=== PATIENT | female | born 1970 | race Caucasian/White ===

== ENCOUNTER 2017-09-03 16:01 | Inpatient (IN) | payer OTHER ==
[~2017-09-03] VITALS: Ht 157.5 cm; Wt 80.7 kg
[~2017-09-03 16:01] MED LIST: ALLERGY10 M2 PO; CYCLOBENZAPRINE10 M1 PO; FLONASE ALLERG9.9 ML NASB; FLOVENT DISKU100 MCG INH; GUAIFENESIN-COD10 ML PO; IBUPROFEN600 M1 PO; IBUPROFEN800 M1 PO; LIDODERM1 EACH TOP; MASON NATURAL2000 IU PO; MUCINEX600 M1 PO; NASONEX17 GM NASB; PROAIR HFA8.5 GM INH; TYLENOL325 M1 PO; ZITHROMAX250 M2 PO
[2017-09-03 18:50] LABS: ABSOLUTE BASOPHIL COUNT 0 /CUMM (0.0-0.2); ABSOLUTE EOSINOPHIL COUNT 0.1 /CUMM (0.0-0.7); ABSOLUTE GRANULOCYTE CT 18.6 /CUMM (1.4-6.5); ABSOLUTE LYMPH COUNT 1.9 /CUMM (1.2-3.4); ABSOLUTE MONOCYTE COUNT 1.9 /CUMM (0.10-0.60); BASOPHIL % 0.1 % (0.0-2.0); EOSINOPHIL % 0.2 % (0-5); HEMATOCRIT 39.5 % (37-47); MEAN CORPUSCULAR HGB 26.1 PG (27.0-31.0); MEAN CORPUSCULAR HGB CONC 32.9 G/DL (33.0-37.0); MEAN CORPUSCULAR VOLUME 79.5 FL (81.0-99.0); MEAN PLATELET VOLUME 7.6 FL (7.4-10.4); PLATELET COUNT 450 /CUMM (130-400); RBC DISTRIBUTION WIDTH 15.3 % (11.5-14.5); RED BLOOD CELL CT 4.97 /CUMM (4.20-5.40); WHITE BLOOD CELL COUNT 22.6 /CUMM (4.8-10.8)
[2017-09-03 19:20] LABS: GRANULOCYTE % 82.5 % (42.2-75.2)
--- NOTE | 2017-09-03 19:35 | ED GI/GU/ABDOMINAL COMPLAINT ---
History of Present Illness General Chief Complaint: Abdominal Pain/Flank Pain Stated Complaint: ABD PAIN Source: patient Exam Limitations: no limitations Vital Signs & Intake/Output Vital Signs & Intake/Output Vital Signs Date Time Temp Pulse Resp B/P B/P Pulse O2 O2 Flow FiO2 Mean Ox Delivery Rate 09/04 0200 Nasal 1.0L Cannula 09/03 2100 98.6 102 18 139/73 96 Room Air 09/03 1845 Room Air Room Air 09/03 1817 97.9 96 20 157/89 98 Room Air 09/03 1613 98.1 89 18 137/88 98 Room Air ED Intake and Output 09/04 0000 09/03 1200 Intake Total Output Total Balance Patient 178 lb Weight Weight Reported by Patient Measurement Method Allergies Coded Allergies: mometasone furoate (From NASONEX) (Intermediate, NASAL SWELLING 02/20/16) montelukast (From SINGULAIR) (PER PT MADE HER FEEL JITTERY, UNCOMFORTABLE ) pseudoephedrine (From SUDAFED) (MADE HEART FEEL FLUTTERS 09/03/17) Reconcile Medications Acetaminophen (Tylenol) 325 MG TABLET 500 MG PO TID PRN pain Azelastine HCl (Unknown Strength) SPRAY.PUMP (Unknown Dose) UNKNOWN (Reported ) Cetirizine HCl (Allergy) 10 MG TABLET 1 TAB PO DAILY ALLERGIES Cyclobenzaprine HCl 10 MG TABLET 1 TAB PO QPM PRN muscle spasm May cause drowsiness. Avoid prior to driving. Fluticasone Propionate (Flonase Allergy Relief) 50 MCG/ACTUATION SPRAY.SUSP 1 SPRAY NASB DAILY ALLERGIES Ibuprofen 600 MG TABLET 1 TAB PO TID pain with food Lidocaine (Lidoderm) 5 % ADH..PATCH 1 PAT TOP DAILY PRN pain may wear up to 12 hours Multiple Vitamin (Multivitamins) 1 EACH TABLET 1 TAB PO DAILY SUPPLEMENT ( Reported) Triage Note: 47F [place]UR[place] AFTER DX URI BUT STILL HAS ABDOMINAL PAIN SINCE THIS MORNING. CONSTANT AND CRAMPY/SHARP THAT RADIATES DOWN PELVIS. DENIES DYSURIA, THINKS SHE MAY HAVE HAD HEMATURIA THE OTHER NIGHT. BACK PAIN TO MID BACK SINCE WEDNESDAY. AFEBRILE. LAST BM TODAY AND SOFT/BROWN. Triage Nurses Notes Reviewed? yes LMP (ages 10-50): unknown ? n Is pt currently ? No Onset: Abrupt Duration: day(s): (1), constant, continues in ED Timing: single episode today Quality/Severity: sharpness Severity Numbers: 8 Location: right lower quadrant Radiation: no radiation Activities at Onset: none Prior Abdominal Problems: none Past Sexual History: Unobtainable at this time No Modifying Factors: none Modifying Factors: Worsens With: movement, palpation. Associated Symptoms: abdominal pain, nausea/vomiting HPI: 47-year-old female without significant medical history presents for evaluation of abdominal pain. Patient reports symptoms started acutely this morning. The pain is located mostly in the right lower quadrant and is in the pelvis. Described as sharp. Associated nausea but no vomiting. No fever or diarrhea. She also reporting some lower back pain is reproducible with range of motion and palpation. She does not take any medicine for this. No recent abdominal surgeries no fevers. No urinary symptoms or vaginal discharge. (German Elias) Past History Travel History Traveled to [place] past 21 day No Medical History Any Pertinent Medical History? see below for history Neurological: NONE EENT: NONE Cardiovascular: NONE Respiratory: NONE Gastrointestinal: COLITIS?? Hepatic: NONE Renal: NONE Musculoskeletal: NONE Psychiatric: NONE Endocrine: NONE Blood Disorders: NONE Cancer(s): NONE ACTUARIAL CLERK/Reproductive: NONE Surgical History Surgical History: cholecystectomy Psychosocial History What is your primary language [place] Tobacco Use: Refused to answer Family History Hx Contributory? No (German Elias) Review of Systems Review of Systems Constitutional: Reports: no symptoms. EENTM: Reports: no symptoms. Respiratory: Reports: no symptoms. Cardiovascular: Reports: no symptoms. GI: Reports: see HPI, abdominal pain, nausea. Genitourinary: Reports: no symptoms. Musculoskeletal: Reports: no symptoms. Skin: Reports: no symptoms. Neurological/Psychological: Reports: no symptoms. Hematologic/Endocrine: Reports: no symptoms. Immunologic/Allergic: Reports: no symptoms. All Other Systems: Reviewed and Negative (German Elias) Physical Exam Physical Exam General Appearance: well developed/nourished, no apparent distress, alert, awake Head: atraumatic, normal appearance Eyes: Bilateral: normal appearance, PERRL, EOMI. Ears, Nose, Throat, Mouth: hearing grossly normal, moist mucous membrane Neck: normal inspection, supple, full range of motion Respiratory: normal breath sounds, chest non-tender, no respiratory distress, lungs clear Cardiovascular: regular rate/rhythm, normal peripheral pulses Peripheral Pulses: 2+ radial (R), 2+ radial (L) Gastrointestinal: normal bowel sounds, soft, no organomegaly, tenderness (rlq, mcburneys point tender) Back: normal inspection, normal range of motion, no vertebral tenderness Extremities: normal range of motion Neurologic/Psych: no motor/sensory deficits, awake, alert, oriented x 3, normal gait, normal mood/affect Skin: intact, normal color, warm/dry Core Measures ACS in differential dx? No Sepsis Present: No Sepsis Focused Exam Completed? No (Alen YEN,German) Progress Differential Diagnosis: appendicitis, biliary colic, bowel obstruction, cholecystitis, diverticulitis, gastritis, hepatitis, ischemic bowel, intrauterine , kidney stone, ovarian cyst, ovarian torsion, pancreatitis, peptic ulcer, PUD/GERD, perforated viscous, SBO, UTI/pyelo Plan of Care: Orders Procedure Date/time Status Clear Liquid Diet 09/04 B Active Weight 09/04 011 Complete Vital Signs 09/05 111 Active Teach/Educate 09/05 111 Active Pain Treatment and Response 09/04 011 Active Nutritional Intake, Monitor 09/04 011 Active Isolation 09/04 011 Active Intake & Output 09/04 011 Active Patient Care Conference 09/04 011 Active Activity/Ambulation 09/04 011 Active Pathway - chart 09/04 0027 Active Patient Data 09/04 0027 Active Code Status 09/04 0027 Active TRC EVALUATION (GEN) 09/04 UNK Active OXYGEN SETUP (GEN) 09/04 UNK Active Admit to inpatient 09/04 UNK Active Wound Care/Dressing 09/04 UNK Active VTE Mechanical Prophylaxis 09/04 UNK Active Vital Signs 09/04 UNK Active Intake & Output 09/04 UNK Active Activity/Ambulation 09/04 UNK Active PATHOLOGY SPECIMEN 09/03 2320 Active Add-on Test (ER Only) 09/03 2018 Active Add-on Test (ER Only) 09/03 2014 Active TYPE & SCREEN (NOT X-MATCH) 09/03 2014 Complete PARTIAL THROMBOPLASTIN TIME 09/03 1832 Complete PROTHROMBIN TIME 09/03 1832 Complete LIPASE 09/03 181 Complete COMPREHENSIVE METABOLIC PANEL 09/03 181 Complete CBC WITHOUT DIFFERENTIAL 09/03 181 Complete URINALYSIS 09/03 1634 Complete Current Medications Sig/Benjamin Start time Last Medication Dose Stop Time Status Admin Docusate Sodium 100 MG BID 09/04 899 AC (Colace) Fluticasone 2 SPRAY DAILY 09/04 899 AC Propionate (Flonase) Lidocaine 1 PAT DAILY 09/04 899 AC (Lidoderm) Loratadine 10 MG DAILY 09/04 899 AC (Claritin) Multivitamins 1 TAB DAILY 09/04 899 AC (Theragran Vitamins) Pantoprazole Sodium 40 MG DAILY 09/04 899 AC (Protonix) Polyethylene Glycol 17 GM DAILY 09/04 899 AC (Miralax) Ampicillin Sodium/ 3,000 MG Q6 09/04 599 AC Sulbactam Sodium (Unasyn) Sodium Chloride 100 ML (Normal Saline 0.9%) Heparin Sodium 5,000 UNIT Q8 09/04 599 AC (Porcine) Morphine Sulfate 2 MG Q3P PRN 09/04 0200 AC (MORPHINE SULFATE) Ondansetron HCl 4 MG Q4-PRN PRN 09/04 0145 AC 09/04 (Zofran) 0137 Ketorolac 30 MG Q8P PRN 09/04 0045 AC Tromethamine (Toradol) Acetaminophen 1,000 MG Q8P PRN 09/04 0030 AC (Tylenol) Albuterol Sulfate 3 ML Q4-6 PRN PRN 09/04 0030 AC (Proventil) Diphenhydramine HCl 50 MG Q4P PRN 09/04 0030 AC (Benadryl) Ipratropium [place] 2.5 ML Q4-6 PRN PRN 09/04 0030 AC (Atrovent) Lactated Ringer's 1,000 ML Q8H 09/04 0030 AC 09/04 (Lactated Ringers) 0140 Morphine Sulfate 4 MG Q3P PRN 09/04 0030 AC (MORPHINE SULFATE) Oxycodone HCl 5 MG Q4-6 PRN PRN 09/04 0030 AC (Roxicodone) Oxycodone HCl 10 MG Q4-6 PRN PRN 09/04 0030 AC (Roxicodone) Ampicillin Sodium/ 0 .STK-MED ONE 09/04 2027 CAN Sulbactam Sodium (Unasyn) Acetaminophen 0 .STK-MED ONE 09/03 1829 CAN (Ofirmev) Laboratory Tests 09/03/171831: Anion Gap 15, Estimated GFR > 60, BUN/Creatinine Ratio 16.0, Glucose 107 H, Calcium 9.3, Total Bilirubin 0.6, AST 17, ALT 19, Alkaline Phosphatase 135 H, Total Protein 8.1, Albumin 4.3, Globulin 3.8, Albumin/Globulin Ratio 1.1, Lipase 61, PT 13.7 H, INR 1.25 H, APTT 29, CBC w Diff NO MAN DIFF REQ, RBC 4.97, MCV 79.5 L, MCH 26.1 L, MCHC 32.9 L, RDW 15.3 H, MPV 7.6, Gran % 82.5 H, Lymphocytes % 8.6 L, Monocytes % 8.6, Eosinophils % 0.2, Basophils % 0.1, Absolute Granulocytes 18.6 H, Absolute Lymphocytes 1.9, Absolute Monocytes 1.9 H, Absolute Eosinophils 0.1, Absolute Basophils 0 09/03/17 1634: Urine Color YEL, Urine Clarity CLEAR, Urine pH 5.5, Ur Specific [place] >= 1.030 , Urine Protein NEG, Urine Ketones NEG, Urine Nitrite NEG, Urine Bilirubin NEG, Urine Urobilinogen 0.2, Ur Leukocyte Esterase NEG, Ur Microscopic SEDIMENT EXAMINED, Urine RBC 3-5, Ur Epithelial Cells FEW, Urine Bacteria MOD H, Urine Mucus MOD H, Urine Hemoglobin MOD H, Urine Glucose NEG Seen and evaluated. She is here reporting pain in her right lower quadrant started abruptly today. Described as sharp rating towards the pelvis. She is afebrile vital signs are stable. Patient medicated with IV Tylenol check labs and a CT scan. Blood Work shows a white count of 22,[address] scan showed evidence of acute appendicitis without abscess or perforation. Surgery will be notified. Unasyn IV fluids ordered. Patient was transported to the operating room for appendectomy. Diagnostic Imaging: Viewed by Me: CT Scan. Discussed w/RAD: CT Scan. Radiology Impression: PATIENT: VISHNU ESQUIVEL PRESENT AGE: 47 PATIENT ACCOUNT NO: [id number] : 68 LOCATION: [facility] ORDERING PHYSICIAN: German YEN SERVICE DATE: 09/03/17 EXAM TYPE: CAT - CT ABD & PELVIS W IV CONTRAST EXAMINATION: CT ABDOMEN AND PELVIS WITH CONTRAST CLINICAL INFORMATION: Right lower quadrant pain. COMPARISON: 07/24/2015. TECHNIQUE: Contiguous axial thin section helical images of the abdomen and pelvis were performed following the administration of 95 mL of intravenous. 320. The data set was reformatted in the coronal and sagittal planes and reviewed on an independent workstation. DLP: 373 mGy-cm. FINDINGS: Within the lateral basal segment of the right lower lobe image 45/712, there is a 5 mm nodule. This measured 4 mm on the prior exam. The visualized lung bases are otherwise clear. The visualized portions of the heart are unremarkable. The liver is of normal size and attenuation without focal lesions nor intrahepatic biliary ductal dilation. Patient is status post cholecystectomy. Surgical clips are present. The spleen, pancreas, adrenal glands are unremarkable. Both kidneys are of normal size and attenuation without nephrolithiasis. There is right grade 1-2 hydronephrosis. There is mild left pelviectasis. Following the administration of IV contrast, prompt symmetric nephrograms are displayed. There is no abdominal free fluid. There is neither mesenteric nor retroperitoneal lymphadenopathy. The appendix is thickened measuring 11 mm. There is mild adjacent fat stranding. There are no drainable fluid collection; otherwise, unremarkable unopacified loops of small and large bowel are identified. There is no pelvic free fluid. The urinary bladder is unremarkable. There is a 2.2 cm left ovarian cyst. There is neither pelvic nor inguinal lymphadenopathy. Bone windows: Neither sclerotic nor lytic bone lesions are identified. IMPRESSION: Appendicitis without drainable fluid collections. Right grade 1-2 hydronephrosis. 2.2 cm left ovarian cyst. 5 mm right lower lobe pulmonary nodule which measured 4 mm on the prior exam from 2 years ago. DICTATED BY: Dillon Thomas MD DATE/TIME DICTATED:1999 TRANSITION PROGRAM MANAGER:EDWIN DATE/TIME TRANSCRIBED:09/03/171999 CONFIDENTIAL, DO NOT COPY WITHOUT APPROPRIATE AUTHORIZATION. <Electronically signed in Other Vendor System> SIGNED BY: Dillon Thomas MD 09/03/172007 Initial ED EKG: none (German Elias) Departure Departure Disposition: STILL A PATIENT Condition: Stable Clinical Impression Primary Impression: Acute appendicitis Qualifiers: Acute appendicitis type: unspecified acute appendicitis type Qualified Code: K35.80 - Unspecified acute appendicitis Referrals: Shavon ROBERTS,Marco A Fitch (PCP/Family) Departure Forms: Customer Survey General Discharge Information OR/GI Note Spoke With: Navi ROBERTS,Christopher N. ED Treatment Decision: VISHNU ESQUIVEL requires urgent operative management or an emergent procedure that cannot be performed in the Emergency Room setting. Appendectomy Transport To: [facility] (German Elias) PA/ACTUARIAL SCIENCE PROFESSOR Co-Sign Statement Statement: ED Attending supervision documentation- [x] I saw and evaluated the patient. I have also reviewed all the pertinent lab results and diagnostic results. I agree with the findings and the plan of care as documented in the PA's/ACTUARIAL SCIENCE PROFESSOR's documentation. [] I have reviewed the ED Record and agree with the PA's/ACTUARIAL SCIENCE PROFESSOR's documentation. [] Additions or exceptions (if any) to the PAs/ACTUARIAL SCIENCE PROFESSOR's note and plan are summarized below: [] (Giovanni ROBERTS,Louie Jordan)
--- NOTE | 2017-09-03 20:08 | CT SCAN REPORT ---
EXAMINATION: CT ABDOMEN AND PELVIS WITH CONTRAST CLINICAL INFORMATION: Right lower quadrant pain. COMPARISON: 07/24/2015. TECHNIQUE: Contiguous axial thin section helical images of the abdomen and pelvis were performed following the administration of 95 mL of intravenous. 320. The data set was reformatted in the coronal and sagittal planes and reviewed on an independent workstation. DLP: 373 mGy-cm. FINDINGS: Within the lateral basal segment of the right lower lobe image 45/712, there is a 5 mm nodule. This measured 4 mm on the prior exam. The visualized lung bases are otherwise clear. The visualized portions of the heart are unremarkable. The liver is of normal size and attenuation without focal lesions nor intrahepatic biliary ductal dilation. Patient is status post cholecystectomy. Surgical clips are present. The spleen, pancreas, adrenal glands are unremarkable. Both kidneys are of normal size and attenuation without nephrolithiasis. There is right grade 1-2 hydronephrosis. There is mild left pelviectasis. Following the administration of IV contrast, prompt symmetric nephrograms are displayed. There is no abdominal free fluid. There is neither mesenteric nor retroperitoneal lymphadenopathy. The appendix is thickened measuring 11 mm. There is mild adjacent fat stranding. There are no drainable fluid collection; otherwise, unremarkable unopacified loops of small and large bowel are identified. There is no pelvic free fluid. The urinary bladder is unremarkable. There is a 2.2 cm left ovarian cyst. There is neither pelvic nor inguinal lymphadenopathy. Bone windows: Neither sclerotic nor lytic bone lesions are identified. IMPRESSION: Appendicitis without drainable fluid collections. Right grade 1-2 hydronephrosis. 2.2 cm left ovarian cyst. 5 mm right lower lobe pulmonary nodule which measured 4 mm on the prior exam from 2 years ago.
[2017-09-03 20:31] LABS: PT 13.7 SEC (9.4-12.5); PTT 29 SEC (25-37)
[2017-09-03] MEDS ORDERED: MULTIVITAMINS1 EAC9 PO (20:54)
[2017-09-03] MEDS ORDERED: AZELASTINE137 MCG/0. (20:55)
--- NOTE | 2017-09-03 22:09 | Operative Report ---
Operative/Inv Procedure Report Surgery Date: 09/03/17 Name of Procedure: Laparoscopic appendectomy Pre-Operative Diagnosis: Acute appendicitis Post-Operative Diagnosis: Same, suppurative Estimated Blood Loss: scant Surgeon/Peer Specialist: Navi ROBERTS,Christopher YEN Anesthesia: general endotracheal tube Operative/Procedure Note Note: Patient was placed on the OR table in the supine position. After successful induction of general anesthesia the patient's abdomen was prepped clipped and draped in the usual sterile fashion The left arm was tucked. Local anesthetic was injected at the top of the umbilicus and entry into the peritoneum was established via the open Roe technique: a one cm curved incision was made at the top of the umbilicus, the linea alba was secured between 2 pediatric Ar clamps and incised vertically, 0-Vicryl stay sutures were placed on each side and then while retracting upwards, the peritoneal layer was entered sharply, then through that small opening, using an S retractor acting like a shoehorn, a 10 mm blunt trocar was inserted obliquely to the right and secured with the stay sutures. The gas was turned on to maximum of 15 mm, two 5 mm dissecting ports were then inserted, one suprapubic and one left lower quadrant, laterally. We used a local anesthetic needle to guide their trajectories, particular attention was given to avoid injury to the bowel, the bladder and the epigastric vessels. Then our attention was directed to the right lower quadrant, the small bowel was swept superiorly and medially, revealing the base of the cecum. An inflamed appendix was then mobilized by it from the lateral and inferior peritoneal attachments using cautery. Using a combination of a [place] dissector, peanut dissector and a [place] clamp, a window was developed between the mesoappendix and the base of the appendix. This window is then used to divide the appendix at the base and the mesoappendix with a linear stapling device, separately, using an intestinal cartridge for the appendix and a vascular cartridge for the mesoappendix; the division of the appendix includes a small flange of cecal base. The appendix is lowered into an Endobag and set aside. The staple lines were checked for bleeding and small oozing was controlled with light zaps of the cautery. We deliberately irrigate the area including up by the liver and down in the pelvis, several rounds, checking the staple lines and each time to make sure that there is no ongoing bleeding. Next the instruments and the trochars and Endobag are removed, letting the gas out. We closed the umbilical fascial incision with a [id number] 0 vicryl suture, then the 3 skin incisions are closed with multiple interrupted subcuticular 4-0 Biosyn sutures, 3 for the umbilical, 1 each for the smaller ones, then covered with Mastisol, Steri-Strips and Band-Aids. EBL minimal Lap and sponge and sponge counts: correct Wound expectancy: infected IV fluids: crystalloid Complications: none Patient tolerated the procedure well was awakened and extubated and returned to the recovery room in satisfactory condition.
--- NOTE | 2017-09-03 22:13 | History & Physical Pre-Op ---
General Information and HPI History of Present Illness: cc: appendicitis HPI: 47-year-old female smoker nondiabetic was been on and off antibiotics for sinus syndrome infection since January at least, but earlier this week she had some lower back pain and then last night she started having some lower abdominal pain today she noticed it was more in the right lower quadrant so she came to the ER both for the sinus infection and for the lower abdominal pain she came to the ER twice. No fevers no sweats a lot of nausea no vomiting had need anything unusual no family history of appendicitis no bleeding per rectum pain is not worse on movement and doesn't radiate no dysuria the PFSH and ROS were reviewed past surgical history laparoscopic cholecystectomy family history positive for several different cancers no heart disease. Allergies/Medications Allergies: Coded Allergies: mometasone furoate (From NASONEX) (Intermediate, NASAL SWELLING 02/20/16) montelukast (From SINGULAIR) (PER PT MADE HER FEEL JITTERY, UNCOMFORTABLE ) pseudoephedrine (From SUDAFED) (MADE HEART FEEL FLUTTERS 09/03/17) Home Med list Acetaminophen (Tylenol) 325 MG TABLET 500 MG PO TID PRN pain Azelastine HCl (Unknown Strength) SPRAY.PUMP (Unknown Dose) UNKNOWN (Reported ) Cetirizine HCl (Allergy) 10 MG TABLET 1 TAB PO DAILY ALLERGIES Cyclobenzaprine HCl 10 MG TABLET 1 TAB PO QPM PRN muscle spasm May cause drowsiness. Avoid prior to driving. Fluticasone Propionate (Flonase Allergy Relief) 50 MCG/ACTUATION SPRAY.SUSP 1 SPRAY NASB DAILY ALLERGIES Ibuprofen 600 MG TABLET 1 TAB PO TID pain with food Lidocaine (Lidoderm) 5 % ADH..PATCH 1 PAT TOP DAILY PRN pain may wear up to 12 hours Multiple Vitamin (Multivitamins) 1 EACH TABLET 1 TAB PO DAILY SUPPLEMENT ( Reported) Past History Medical History Neurological: NONE EENT: NONE Cardiovascular: NONE Respiratory: NONE Gastrointestinal: COLITIS?? Hepatic: NONE Renal: NONE Musculoskeletal: NONE Psychiatric: NONE Endocrine: NONE Blood Disorders: NONE Cancer(s): NONE ASSISTANT DIRECTOR OF SECURITY/Reproductive: NONE Surgical History Pertinent Surgical History: cholecystectomy Review of Systems Review of Systems: Constitutional: No fever, sweats or weight loss ENMT: No sore throat Cardiovascular: No chest pain, palpitations or leg swelling Respiratory: No shortness of breath, cough, or sputum or dyspnea on exertion GI: No GERD or bleeding per rectum : No dysuria or hematuria Musculoskeletal: No new muscle weakness, bone or joint pain Skin / Breast: No jaundice, rashes or itching Psychiatric: No history of drug or alcohol abuse no depression or anxiety Hematologic / lymphatic system: No problems with excessive bleeding, bruising, or blood clots Exam & Diagnostic Data Last 24 Hrs of Vital Signs/I&O I reviewed Vital Signs Date Time Temp Pulse Resp B/P B/P Pulse O2 O2 Flow FiO2 Mean Ox Delivery Rate 09/03 2100 98.6 102 18 139/73 96 Room Air 09/03 1845 Room Air Room Air 09/03 1817 97.9 96 20 157/89 98 Room Air 09/03 1613 98.1 89 18 137/88 98 Room Air Physical Exam: Constitutional: pleasant, no acute distress, conversant Eyes: sclera anicteric ENMT: ears and nose atraumatic, moist mucous membranes, good dentition, no lip lesions Neck: Supple, trachea is midline, no cervical or supraclavicular adenopathy and no palpable thyromegaly Cardiovascular: S1, S2, no murmurs, no peripheral edema Respiratory: clear to auscultation with normal respiratory effort and no intercostal retractions GI: abdomen soft, McBurney's point tenderness no rebound or guarding, nondistended, no palpable hepatosplenomegaly Extremities / lymphatics: symmetrically warm, free range of motion no peripheral edema, no cervical, supraclavicular, axillary, or inguinal adenopathy Musculoskeletal: Did not evaluate gait and station, no digital cyanosis, good muscle strength and tone no atrophy, motor grossly 5 out of 5 throughout Skin: no jaundice, no rashes warm, nondiaphoretic, no areas of erythema or induration Psychiatric: mood and affect are appropriate and alert and oriented to person place and time Last 24 Hrs of Labs/Jose Alfredo: I reviewed Laboratory Tests 09/03/17 1832: Anion Gap 15, Estimated GFR > 60, BUN/Creatinine Ratio 16.0, Glucose 107 H, Calcium 9.3, Total Bilirubin 0.6, AST 17, ALT 19, Alkaline Phosphatase 135 H, Total Protein 8.1, Albumin 4.3, Globulin 3.8, Albumin/Globulin Ratio 1.1, Lipase 61, PT 13.7 H, INR 1.25 H, APTT 29, CBC w Diff NO MAN DIFF REQ, RBC 4.97, MCV 79.5 L, MCH 26.1 L, MCHC 32.9 L, RDW 15.3 H, MPV 7.6, Gran % 82.5 H, Lymphocytes % 8.6 L, Monocytes % 8.6, Eosinophils % 0.2, Basophils % 0.1, Absolute Granulocytes 18.6 H, Absolute Lymphocytes 1.9, Absolute Monocytes 1.9 H, Absolute Eosinophils 0.1, Absolute Basophils 0 09/03/17 1634: Urine Color YEL, Urine Clarity CLEAR, Urine pH 5.5, Ur Specific [place] >= 1.030 , Urine Protein NEG, Urine Ketones NEG, Urine Nitrite NEG, Urine Bilirubin NEG, Urine Urobilinogen 0.2, Ur Leukocyte Esterase NEG, Ur Microscopic SEDIMENT EXAMINED, Urine RBC 3-5, Ur Epithelial Cells FEW, Urine Bacteria MOD H, Urine Mucus MOD H, Urine Hemoglobin MOD H, Urine Glucose NEG Assessment/Plan Assessment/Plan: Studies I reviewed today's CT scan on PACS myself and shows a thickened appendix with some inflammatory changes around it no obvious fluid Impression is acute appendicitis. I explained to the patient that this is a potentially life-threatening infection for which I recommend an appendectomy. I feel antibiotics often alone are not enough and sometimes there is an occult malignancy. The severity of infection is related to the chance of perforation which usually increases after about 24 hours fortunately the patient is presenting earlier, , it seems but she has had lower back pain since Wednesday, we shall see. Depending on what we find intraoperatively they may be discharged the same day or may need to stay for more IV antibiotics, at depends. I also discussed the possibility of a postoperative infection whether superficial or deep, this is also related to the initial severity and may also appear even a week later after an initial interval of well-being during the recovery. I explained the operation we usually do it laparoscopically rarely converting to open, depending on the amount of inflammation and whether the anatomy is very unusual all to avoid inadvertent injury to surrounding surrounding structures such as bowel and blood vessels and ureter. We also discussed the potential risks, benefits and alternatives to the procedure and surgery in general, issues that included but were not limited to, anesthetic risks hemorrhage requiring transfusion, the risk of transfusion itself, infection, heart attack, stroke, . I explained the importance of stopping smoking as it pertains to surgery , especially with general anesthesia and healing. As Ranked By This Provider Problem List: 1. Acute appendicitis
[2017-09-04 01:50] VITALS: BP 126/80
[2017-09-04 03:15] VITALS: BP 122/76
[2017-09-04 06:05] VITALS: BP 110/70
--- NOTE | 2017-09-04 07:55 | PN- General Surgery ---
See Addendum Subjective Subjective: No acute events overnight/post-op. Reports her pain has much improved, though does continue to have expected asif-incisional pain. Tolerating clears without associated n/d. Has been out of bed and is voiding without problems. Asking to advance to solid food diet. Has not had bm. Otherwise, patient is doing well. Denies cp, sob, n/v/d, f/c/s. Objective Vital Signs and I&Os Vital Signs Date Time Temp Pulse Resp B/P B/P Pulse O2 O2 Flow FiO2 Mean Ox Delivery Rate 09/04 0605 97.7 78 20 110/70 93 Room Air 09/04 0315 97.5 80 20 122/76 96 Nasal 1.0L Cannula 09/04 0200 Nasal 1.0L Cannula 09/04 0150 97.5 81 20 126/80 91 Nasal 1.0L Cannula 09/03 2100 98.6 102 18 139/73 96 Room Air 09/03 1845 Room Air Room Air 09/03 1817 97.9 96 20 157/89 98 Room Air 09/03 1613 98.1 89 18 137/88 98 Room Air Intake & Output 09/04 0800 09/04 0000 09/03 1600 09/03 0800 09/03 0000 09/02 1600 Intake Total 985 Output Total Balance 985 Intake, IV 625 Intake, Oral 360 Patient 178 lb 178 lb Weight Weight Reported by Patient Reported by Patient Measurement Method Physical Exam: General: middle age female laying supine in bed, answering questions without problems, nad CV: RRR Pulm: CTA b/l lung greer Abdomen: surgical dressings are clean/dry/intact, +bs present, moderate asif- insicional abdominal tenderness to palpation, no guarding/distention extremities: warm and well perfused Current Medications: Current Medications Sig/Benjamin Start time Last Medication Dose Route Stop Time Status Admin Acetaminophen 1,000 MG Q8P PRN 09/04 0030 AC PO Acetaminophen 1,000 MG ONCE ONE 09/03 1830 DC 09/03 N/A 1 UNIT IV 09/03 1844 1845 Acetaminophen 0 .STK-MED ONE 09/03 183 CAN IV Albuterol Sulfate 3 ML Q4-6 PRN PRN 09/04 0030 AC INH Ampicillin Sodium/ 3,000 MG Q6 09/04 0600 AC 05/12 Sulbactam Sodium IV 0515 Sodium Chloride 100 ML Ampicillin Sodium/ 0 .STK-MED ONE 09/04 2027 CAN Sulbactam Sodium .ROUTE Ampicillin Sodium/ 3,000 MG ONCE ONE 09/03 2014 DC 09/03 Sulbactam Sodium IV 09/03 Sodium Chloride 100 ML Diphenhydramine HCl 50 MG Q4P PRN 09/04 0030 AC IV Docusate Sodium 100 MG BID 09/04 899 AC PO Fluticasone 2 SPRAY DAILY 09/04 899 AC Propionate LY Heparin Sodium 5,000 UNIT Q8 09/04 06 AC 09/04 (Porcine) SC 0515 Ipratropium [place] 2.5 ML Q4-6 PRN PRN 09/04 003 AC INH Ketorolac 30 MG Q8P PRN 09/04 0045 DC Tromethamine IV Lactated Ringer's 1,000 ML Q8H 09/04 0030 DC 09/04 IV 0140 Lidocaine 1 PAT DAILY 09/04 899 AC EXT Loratadine 10 MG DAILY 09/04 899 AC PO Morphine Sulfate 2 MG Q3P PRN 09/04 0200 DC 09/04 IV 0650 Morphine Sulfate 2 MG Q3P PRN 09/04 0030 DC IV Morphine Sulfate 4 MG Q3P PRN 09/04 0030 DC IV Multivitamins 1 TAB DAILY 09/04 899 AC PO Ondansetron HCl 4 MG Q4-PRN PRN 09/04 0145 AC 09/04 IV 0137 Oxycodone HCl 5 MG Q4-6 PRN PRN 09/04 0030 AC PO Oxycodone HCl 10 MG Q4-6 PRN PRN 09/04 0030 AC PO Pantoprazole Sodium 40 MG DAILY 09/04 899 AC IV Polyethylene Glycol 17 GM DAILY 09/04 899 AC PO Sodium Chloride 1,000 ML BOLUS ONE 09/03 2129 DC 09/03 IV 09/03 222 2149 Results Last 48 Hours of Labs: Laboratory Tests 09/03 09/03 1832 1634 Chemistry Sodium (137 - 145 mmol/L) 139 Potassium (3.5 - 5.1 mmol/L) 3.9 Chloride (98 - 107 mmol/L) 104 Carbon Dioxide (22 - 30 mmol/L) 20 L Anion Gap (5 - 16) 15 BUN (7 - 17 mg/dL) 8 Creatinine (0.5 - 1.0 mg/dL) 0.5 Estimated GFR (>60 ml/min) > 60 BUN/Creatinine Ratio (7 - 25 %) 16.0 Glucose (65 - 99 mg/dL) 107 H Calcium (8.4 - 10.2 mg/dL) 9.3 Total Bilirubin (0.2 - 1.3 mg/dL) 0.6 AST (14 - 36 U/L) 17 ALT (9 - 52 U/L) 19 Alkaline Phosphatase (<127 U/L) 135 H Total Protein (6.3 - 8.2 g/dL) 8.1 Albumin (3.5 - 5.0 g/dL) 4.3 Globulin (1.9 - 4.2 gm/dL) 3.8 Albumin/Globulin Ratio (1.1 - 2.2 %) 1.1 Lipase (23 - 300 U/L) 61 Coagulation PT (9.4 - 12.5 SEC) 13.7 H INR (0.90 - 1.19) 1.25 H APTT (25 - 37 SEC) 29 Hematology CBC w Diff NO MAN DIFF REQ WBC (4.8 - 10.8 /CUMM) 22.6 H RBC (4.20 - 5.40 /CUMM) 4.97 Hgb (12.0 - 16.0 G/DL) 13.0 Hct (37 - 47 %) 39.5 MCV (81.0 - 99.0 FL) 79.5 L MCH (27.0 - 31.0 PG) 26.1 L MCHC (33.0 - 37.0 G/DL) 32.9 L RDW (11.5 - 14.5 %) 15.3 H Plt Count (130 - 400 /CUMM) 450 H MPV (7.4 - 10.4 FL) 7.6 Gran % (42.2 - 75.2 %) 82.5 H Lymphocytes % (20.5 - 51.1 %) 8.6 L Monocytes % (1.7 - 9.3 %) 8.6 Eosinophils % (0 - 5 %) 0.2 Basophils % (0.0 - 2.0 %) 0.1 Absolute Granulocytes (1.4 - 6.5 /CUMM) 18.6 H Absolute Lymphocytes (1.2 - 3.4 /CUMM) 1.9 Absolute Monocytes (0.10 - 0.60 /CUMM) 1.9 H Absolute Eosinophils (0.0 - 0.7 /CUMM) 0.1 Absolute Basophils (0.0 - 0.2 /CUMM) 0 Urines Urine Color (YEL,AMB,STR) YEL Urine Clarity (CLEAR) CLEAR Urine pH (5.0 - 8.0) 5.5 Ur Specific [place] (1.001 - 1.035) >= 1.030 Urine Protein (NEG,<30 MG/DL) NEG Urine Ketones (NEG) NEG Urine Nitrite (NEG) NEG Urine Bilirubin (NEG) NEG Urine Urobilinogen (0.1 - 1.0 EU/dl) 0.2 Ur Leukocyte Esterase (NEG) NEG Ur Microscopic SEDIMENT EXAMINED Urine RBC (0 - 5 /HPF) 3-5 Ur Epithelial Cells (NONE,FEW) FEW Urine Bacteria (NEG/NONE) MOD H Urine Mucus (FEW,NONE) MOD H Urine Hemoglobin (NEG) MOD H Urine Glucose (N MG/DL) NEG Assessment/Plan Assessment/Plan This is a 47 y/o F who is POD#1 s/p Lap appy *Will discuss patient with Dr. Nelson - Continue IV abx -> need to clarify with attending what abx for discharge and/ or if he would like another day of IV abx - Adavance to regular diet - dc IVFs - DC IV pain meds - monitor I&Os - f/u morning cbc - monitor for fevers - continue home inhalers - continue heparin sc Core Measures Venous Thromboembolism VTE Risk Factors Surgery No Mechanical VTE Prophylaxis d/t N/A MechProphylax Ordered No VTE Pharm Prophylaxis d/t NA PharmProphylax ordered
[2017-09-04 08:08] VITALS: BP 118/80
[2017-09-04] MEDS ORDERED: KEFLEX500 M1 PO (09:12)
[2017-09-04] MEDS ORDERED: DOCUSATE SODIU100 M3 PO (09:12)
[2017-09-04] MEDS ORDERED: OXYCODONE HCL5 M1 PO (09:12)
--- NOTE | 2017-09-04 09:16 | Patient Discharge Instructions ---
Discharge Instructions General Discharge Information You were seen/treated for: Acute appendicitis You had these procedures: Laparoscopic Appendectomy Watch for these problems: Fever over 101, increaseing/new/worsening abdominal pain, nausea/vomiting, poor feeding Do not soak the wound: No Daily wet to dry dressings: No No bath, but you may shower: Yes Special Instructions: May shower and get operative area wet, do not soak or scrub. Diet Continue normal diet: Yes Activity Full Activity/No Limits: Yes Acute Coronary Syndrome Inclusion Criteria At DC or during hospital stay patient has or had the following: ACS DIAGNOSIS No Discharge Core Measures Meds if any: Prescribed or Continued at Discharge Meds if any: NOT Prescribed or Continued at Discharge Congestive Heart Failure Inclusion Criteria At DC or during hospital stay patient has or had the following: CHF DIAGNOSIS No Discharge Core Measures Meds if any: Prescribed or Continued at Discharge Meds if any: NOT Prescribed or Continued at Discharge Cerebrovascular accident Inclusion Criteria At DC or during hospital stay patient has or had the following: CVA/TIA Diagnosis No Discharge Core Measures Meds if any: Prescribed or Continued at Discharge Meds if any: NOT Prescribed or Continued at Discharge Venous thromboembolism Inclusion Criteria VTE Diagnosis No VTE Type NONE VTE Confirmed by (Test) NONE Discharge Core Measures - Per Current guidelines, there needs to be overlap - treatment for the first 5 days of Warfarin therapy. - If discharged on Warfarin prior to 5 days of - overlap therapy, the patient will need to be - assessed for post discharge needs including - *Post discharge parental anticoagulation - *Warfarin and/or parental anticoagulation education - *Follow up date to check INR post discharge At least 5 days overlap therapy as Inpatient No Meds if any: Prescribed or Continued at Discharge Note: Overlap Therapy is Warfarin and Anticoagulant Meds if any: NOT Prescribed or Continued at Discharge
[2017-09-04 09:36] LABS: ABSOLUTE BASOPHIL COUNT 0 /CUMM (0.0-0.2); ABSOLUTE EOSINOPHIL COUNT 0 /CUMM (0.0-0.7); ABSOLUTE GRANULOCYTE CT 12.1 /CUMM (1.4-6.5); ABSOLUTE LYMPH COUNT 1.3 /CUMM (1.2-3.4); ABSOLUTE MONOCYTE COUNT 0.3 /CUMM (0.10-0.60); BASOPHIL % 0 % (0.0-2.0); EOSINOPHIL % 0 % (0-5); GRANULOCYTE % 88.3 % (42.2-75.2); HEMATOCRIT 35.6 % (37-47); MEAN CORPUSCULAR HGB 25.6 PG (27.0-31.0); MEAN CORPUSCULAR HGB CONC 32.1 G/DL (33.0-37.0); MEAN CORPUSCULAR VOLUME 79.7 FL (81.0-99.0); MEAN PLATELET VOLUME 7.8 FL (7.4-10.4); PLATELET COUNT 390 /CUMM (130-400); RBC DISTRIBUTION WIDTH 15.3 % (11.5-14.5); RED BLOOD CELL CT 4.47 /CUMM (4.20-5.40)
--- NOTE | 2017-09-04 10:14 | Surg Short-stay <48hrs Dis Sum ---
Visit Information Visit Dates Admission Date: 09/03/17 Discharge Date: 09/04/17 Surgical Short Stay DC Summary Admission Diagnosis: Acute appendicitis Final Diagnosis: Acute appendicitis Procedure(s): Laparoscopic appendectomy Summary/Significant Findings: Patient underwent uncomplicated laparoscopic appendectomy. Was started on appropriate abx. On POD#1 patient was found to be medically/surgically stable for discharge home. Condition at Discharge: Stable Discharge Disposition: home or self care Discharge instructions provided to patient/family: Yes Post discharge follow-up plan: Follow up with your surgeon within one week
[2017-09-04 10:15] LABS: WHITE BLOOD CELL COUNT 13.7 /CUMM (4.8-10.8)
== END 2017-09-04 13:50 | DRG 343 ==
LOC: ERH 16:01 → CRI 09-04 00:30 → 2NA 09-04 02:42 → ENPENDDIS 09-04 10:30 → ENTRNSPT 09-04 13:32 → 2NA 09-04 13:50 → EDTRNSPTSTS 09-04 14:20 → EDTRNSPT 09-04 14:20 → CMPTRNSPT 09-04 15:00
PROVIDERS: Physician Assistant Medical; Physician Assistant Surgical
PROC: 0DTJ4ZZ Resection of Appendix, Percutaneous Endoscopic Approach (ICD-10-PCS; principal; 2017-09-03)
PROC: 3E0T3BZ Introduction of Anesthetic Agent into Peripheral Nerves and Plexi, Percutaneous Approach (ICD-10-PCS; 2017-09-03)
DX: K35.80 Unspecified acute appendicitis (principal); F17.200 Nicotine dependence, unspecified, uncomplicated; J44.9 Chronic obstructive pulmonary disease, unspecified; R05 Cough; J32.9 Chronic sinusitis, unspecified; Z88.8 Allergy status to other drugs, medicaments and biological substances; Z90.49 Acquired absence of other specified parts of digestive tract
CPT/HCPCS: 2NASP; 36415; 74177; 81001; 96365; 96375; C9399; J0131; J1644; J2250; J3010

== ENCOUNTER 2017-11-07 09:49 | Emergency (ER) | payer OTHER ==
[~2017-11-07 09:49] MED LIST changes: +AZELASTINE137 MCG/0.; +DOCUSATE SODIU100 M3 PO; +KEFLEX500 M1 PO; +MULTIVITAMINS1 EAC9 PO; +OXYCODONE HCL5 M1 PO
--- NOTE | 2017-11-07 11:28 | ED GENERAL ADULT ---
History of Present Illness General Chief Complaint: Sore Throat, Dental Pain Stated Complaint: SORE THROAT Source: patient Exam Limitations: no limitations Vital Signs & Intake/Output Vital Signs & Intake/Output Vital Signs Date Time Temp Pulse Resp B/P B/P Pulse O2 O2 Flow FiO2 Mean Ox Delivery Rate 11/07 1338 98.9 85 20 143/74 94 Room Air 11/07 0955 99.0 87 16 153/65 97 Room Air Allergies Coded Allergies: mometasone furoate (From NASONEX) (Intermediate, NASAL SWELLING 02/20/16) montelukast (From SINGULAIR) (PER PT MADE HER FEEL JITTERY, UNCOMFORTABLE ) pseudoephedrine (From SUDAFED) (MADE HEART FEEL FLUTTERS 09/03/17) Reconcile Medications Albuterol Sulfate (Proair Hfa) 90 MCG HFA.AER.AD 2 PUF INH Q4-6 PRN PRN cough Azithromycin (Zithromax Tri-Abdelrahman) 500 MG TABLET 1 TAB PO DAILY infection Biotin (Unknown Strength) CAPSULE (Unknown Dose) PO DAILY SUPPLEMENT ( Reported) Multiple Vitamin (Multivitamins) 1 EACH TABLET 1 TAB PO DAILY SUPPLEMENT ( Reported) Phenazopyridine HCl (Azo Urinary Pain Relief) (Unknown Strength) TABLET ( Unknown Dose) PO PRN (Reported) Triage Note: PT TO ED C/O SORE THROAT SINCE WEDNESDAY. IS ALSO HAVING PAIN TO HER RIGHT EAR. Triage Nurses Notes Reviewed? yes HPI: 47-year-old female presents to the emergency department reporting 3 days ago she began having a sore throat, states that at times it is difficult to even swallow. She also reports having a cough which is productive of a yellow sputum. 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 She reports she also feels tired and her anterior lymph nodes are swollen and sore. She states she also does have allergies so she feels slightly congested. She denies any chest pain, shortness of breath, nausea/vomiting, chest pain, or any other concerning symptoms. Past History Travel History Traveled to [place] past 21 day No Medical History Any Pertinent Medical History? see below for history Neurological: NONE EENT: sinusitis Cardiovascular: hyperlipidemia Respiratory: bronchitis, COPD, PULMONARY NODULES Gastrointestinal: colitis Hepatic: HEPATIC STEATOSIS Renal: NONE Musculoskeletal: CARPAL TUNNEL Psychiatric: anxiety, depression Endocrine: BORDERLINE DM Blood Disorders: BROKEN BLOOD VESSELS UNDER SKIN Cancer(s): NONE VP INTEGRATION/Reproductive: NONE History of MRSA: No History of VRE: No History of CDIFF: No Surgical History Surgical History: cholecystectomy, TONSILLECTOMY Psychosocial History Who do you live with Family Services at Home None What is your primary language Georgian Tobacco Use: Current Daily Use Daily Tobacco Use Amount/Type: => 5 Cigarettes daily Family History Hx Contributory? No Review of Systems Review of Systems Constitutional: Reports: see HPI. EENTM: Reports: see HPI. Respiratory: Reports: see HPI. Cardiovascular: Reports: no symptoms. GI: Reports: no symptoms. Genitourinary: Reports: no symptoms. Musculoskeletal: Reports: no symptoms. Skin: Reports: no symptoms. Neurological/Psychological: Reports: no symptoms. Hematologic/Endocrine: Reports: no symptoms. Immunologic/Allergic: Reports: no symptoms. All Other Systems: Reviewed and Negative Physical Exam Physical Exam General Appearance: well developed/nourished, no apparent distress, alert, awake , comfortable Head: atraumatic, normal appearance Eyes: Bilateral: normal appearance. Ears, Nose, Throat: normal pharynx, nasal congestion, moist mucus membranes, right tm slightly inflamed Neck: full range of motion, lymphadenopathy (R) Respiratory: chest non-tender, no respiratory distress, wheezing Cardiovascular: regular rate/rhythm, normal peripheral pulses Peripheral Pulses: 3+ radial (R), 3+ radial (L) Extremities: normal inspection, normal capillary refill, normal range of motion Neurologic/Psych: no motor/sensory deficits, awake, alert, oriented x 3, normal gait, normal mood/affect Skin: intact, normal color, warm/dry Core Measures ACS in differential dx? No CVA/TIA Diagnosis: No Sepsis Present: No Sepsis Focused Exam Completed? No Progress Differential Diagnoses I considered the following diagnoses in my evaluation of the patient: [sinusitis , ear infection, bronchitis, pneumonia, allergic rhinitis, sinusitis, upper URI] Plan of Care: Orders Procedure Date/time Status THROAT CULTURE W/QUICK STREP 11/07 8065 Active 47-year-old female presented to the emergency department with recent onset URI symptoms. Chest x-ray unremarkable. Patient was persistent with 1 antibiotics, so she was prescribed Z-Abdelrahman and advised to take only if symptoms continue or worsen over the next couple of days. Also take albuterol as needed. Take Robitussin [id number] as needed for coughing. She was also advised to take Zyrtec and Flonase for allergy symptoms. Patient advised to follow-up with PCP. Patient advised to return to the emergency department with new or worsening symptoms. Diagnostic Imaging: Viewed by Me: Radiology Read. Discussed w/RAD: Radiology Read. Radiology Impression: PATIENT: VISHNU ESQUIVEL PRESENT AGE: 47 PATIENT ACCOUNT NO: [id number] : 68 LOCATION: [facility] ORDERING PHYSICIAN: Anita YEN SERVICE DATE: 11/07/17 EXAM TYPE: RAD - XRY-CHEST XRAY, TWO VIEWS EXAMINATION: XR CHEST CLINICAL INFORMATION: Productive cough. Lethargy. COMPARISON: None TECHNIQUE: 2 views of the chest were obtained. FINDINGS: No significant abnormality is noted involving the heart , lungs, mediastinum, bony thorax or soft tissues. No focal consolidation or other abnormality. IMPRESSION: Unremarkable examination. DICTATED BY: Nikki Lynn MD DATE/TIME DICTATED:11/07/171309 CALENDER INSPECTOR:EDWIN DATE/ TIME TRANSCRIBED:11/07/171309 CONFIDENTIAL, DO NOT COPY WITHOUT APPROPRIATE AUTHORIZATION. <Electronically signed in Other Vendor System> SIGNED BY: Nikki Lynn MD 11/07/171314 Initial ED EKG: none Departure Departure Disposition: HOME OR SELF CARE Condition: Stable Clinical Impression Primary Impression: Viral upper respiratory infection Referrals: Shavon ROBERTS,Marco A Fitch (PCP/Family) Additional Instructions: Take Z-Abdelramhan as directed and albuterol as directed. Take robitussin DM for cough. Increase fluid intake. If unable to eat solid foods, try soup and Ensure drinks for added nutrition. Take Zyrtec once daily by mouth for allergies. Take Flonase both nostrils daily for allergies. Follow-up with your primary care provider tomorrow. Return to emergency department with any new or worsening symptoms. Departure Forms: Customer Survey General Discharge Information Prescriptions: Current Visit Scripts Albuterol Sulfate (Proair Hfa) 2 PUF INH Q4-6 PRN PRN cough #1 INHAL Azithromycin (Zithromax Tri-Abdelrahman) 1 TAB PO DAILY #3 TAB Critical Care Note Critical Care Note Critical Care Time: non-applicable
[2017-11-07] MEDS ORDERED: AZO URINARY PAI95 MG PO (12:19)
[2017-11-07] MEDS ORDERED: BIOTIN2500 MCG PO (12:19)
--- NOTE | 2017-11-07 13:15 | RADIOLOGY REPORT ---
EXAMINATION: XR CHEST CLINICAL INFORMATION: Productive cough. Lethargy. COMPARISON: None TECHNIQUE: 2 views of the chest were obtained. FINDINGS: No significant abnormality is noted involving the heart, lungs, mediastinum, bony thorax or soft tissues. No focal consolidation or other abnormality. IMPRESSION: Unremarkable examination.
[2017-11-07] MEDS ORDERED: ZITHROMAX TRI-500 M1 PO (13:32)
[2017-11-07] MEDS ORDERED: PROAIR HFA8.5 GM INH (13:32)
[2017-11-07 13:38] VITALS: BP 143/74
== END 2017-11-07 13:45 ==
LOC: ERH 09:49
DX: J06.9 Acute upper respiratory infection, unspecified (principal); F17.210 Nicotine dependence, cigarettes, uncomplicated
CPT/HCPCS: 71046